=== PATIENT | female | born 1985 | race Caucasian/White ===

== ENCOUNTER 2017-10-11 14:59 | Emergency (ER) | payer OTHER ==
--- NOTE | 2017-10-11 15:50 | EDM.PDOC ---
ED HPI GENERAL MEDICAL PROBLEM - General Chief Complaint: Genitourinary Problem Stated Complaint: REACTION TO CONTRAST Time Seen by Provider: 10/11/17 15:49 Source of Information: Reports: Patient History Limitations: Reports: No Limitations - History of Present Illness INITIAL COMMENTS - FREE TEXT/NARRATIVE: 32-year-old female presents to the ED with complaints of severe bilateral mid back pain. Patient reports that she was in [place] this morning to have MRI of her abdomen carried out with contrast. She states that she developed diarrhea once while she was there and she was forewarned it was likely going to happen again. Surgical she developed to further diarrhea stools and then had nausea and vomiting. She then developed terrific pain in both kidney distributions that is still present and has been present now for almost 6 hours post contrast. She's no longer nauseated and she's had 4 bowel movements since the contrast was given. He has not had an MRI of the abdomen or pelvis before with IV and oral contrast. Was done because she has Crohn's disease and they are looking for an etiology of a fistula or multiple fistulas. She has had no previous abdominal surgery. She's had multiple perianal fistulas. Onset: Today Onset Date: 10/11/17 Onset Time: 10:00 Duration: Hour(s): Location: Reports: Back (Bilateral severe flank pain. This is in the distribution of her kidneys.), Other (Loose diarrhea stools 4.) Quality: Reports: Ache Severity: Severe (Deep aching throbbing pain in the distribution of both kidneys ) Improves with: Reports: None Worsens with: Reports: None Context: Denies: Activity, Exercise, Lifting, Sick Contact, Trauma, Other Associated Symptoms: Reports: Nausea/Vomiting (As above loose watery stools times for nausea and vomiting initially due to the intensity of pain 3.), Other Treatments FACILITIES MAINTENANCE TECHNICIAN: Reports: Other (see below) Other Treatments FACILITIES MAINTENANCE TECHNICIAN: none Bilateral Flank Pain Score (Numeric/FACES): 7 - Related Data Allergies Allergy/AdvReac Type Severity Reaction Status Date / Time lorazepam [From Ativan] Allergy Rash Verified 10/11/17 15:09 Home Meds: Home Meds Ondansetron [Zofran] 4 mg BUCCAL Q6H PRN #5 tab 10/11/17 [Rx] oxyCODONE HCl/Acetaminophen [Percocet 5-325 mg Tablet] 1 - 2 each PO Q4H PRN #6 tablet 10/11/17 [Rx] Past Medical History Gastrointestinal History: Reports: Other (See Below) Other Gastrointestinal History: possible chrohn`s disease with recurrent multiple perianal fistulas. Social & Family History - Tobacco Use Smoking Status *Q: Never Smoker - Caffeine Use Caffeine Use: Reports: Tea - Recreational Drug Use Recreational Drug Use: No - Living Situation & Occupation Living situation: Reports: Occupation: Employed ED ROS GENERAL - Review of Systems Review Of Systems: See Below Constitutional: Reports: Fatigue. Denies: Fever, Chills, Malaise, Weakness HEENT: Reports: No Symptoms Respiratory: Reports: No Symptoms Cardiovascular: Reports: No Symptoms Endocrine: Reports: No Symptoms GI/Abdominal: Reports: Abdominal Pain, Diarrhea, Decreased Appetite, Nausea, Vomiting (Earlier 2 due to the intensity of the back pain.), Other (4 today. Straight multiple perianal fistula development over the years. Suspect Crohn's disease.) : Reports: Flank Pain (Vel[place] of severe bilateral flank pain about an hour and a half to 2 hours after having oral and IV contrast for MRI of the abdomen and pelvis.) Musculoskeletal: Reports: No Symptoms Skin: Reports: Other Neurological: Reports: No Symptoms (Anal fistulas.) Psychiatric: Reports: No Symptoms Hematologic/Lymphatic: Reports: No Symptoms Immunologic: Reports: No Symptoms ED EXAM, GI/ABD - Physical Exam Exam: See Below Exam Limited By: No Limitations General Appearance: Alert, Mild Distress Eyes: Bilateral: Normal Appearance Respiratory/Chest: No Respiratory Distress, Lungs Clear, Normal Breath Sounds Cardiovascular: Normal Peripheral Pulses, Regular Rate, Rhythm, No Edema, No Gallop, No Murmur, No Rub GI/Abdominal Exam: Normal Bowel Sounds, Soft, Non-Tender, No Organomegaly, Pelvis Stable, Tender, Other (Tenderness both upper quadrants of the abdomen. No surgical scars) Back Exam: CVA Tenderness (L), CVA Tenderness (R) Extremities: Normal Inspection, Normal Range of Motion, Non-Tender, No Pedal Edema Neurological: Alert, Oriented, CN II-XII Intact, Normal Cognition Psychiatric: Normal Affect (Bilateral costovertebral angle tenderness.), Normal Mood Skin Exam: Warm, Dry, Intact, Normal Color, No Rash Course - Vital Signs Last Recorded V/S: Last Vital Signs Temp 36.9 C 10/11/17 15:13 Pulse 84 10/11/17 15:13 Resp 20 10/11/17 15:13 BP 105/75 10/11/17 15:13 Pulse Ox 100 10/11/17 15:13 - Orders/Labs/Meds Orders: Active Orders 24 hr Category Date Time Status URINALYSIS W/MICROSCOPIC [UA W/MICROSCOPIC] [URIN] Stat Lab 10/11/17 16:30 Ordered Labs: Laboratory Tests 10/11/17 10/11/17 10/11/17 Range/Units 16:30 16:35 16:35 WBC 10.94 H (3.98-10.04) K/mm3 RBC 5.03 (3.98-5.22) M/mm3 Hgb 14.0 (11.2-15.7) gm/L Hct 42.4 (34.1-44.9) % MCV 84.3 (79.4-94.8) fl MCH 27.8 (25.6-32.2) pg MCHC 33.0 (32.2-35.5) g/dl RDW Std Deviation 41.6 (36.4-46.3) fL Plt Count 300 (182-369) K/mm3 MPV 9.5 (9.4-12.3) fl Neutrophils % (Manual) 72 H (40-60) % Band Neutrophils % 0 (0-10) % Lymphocytes % (Manual) 21 (20-40) % Atypical Lymphs % 4 % Monocytes % (Manual) 3 (2-10) % Eosinophils % (Manual) 1 (0.7-5.8) % Basophils % (Manual) 0 L (0.1-1.2) Platelet Estimate Adequate Plt Morphology Comment Normal RBC Morph Comment Normal Sodium 138 (136-145) mEq/L Potassium 3.7 (3.5-5.1) mEq/L Chloride 105 (98-107) mEq/L Carbon Dioxide 26 (21-32) mEq/L Anion Gap 10.7 (5-15) BUN 18 (7-18) mg/dL Creatinine 1.0 (0.55-1.02) mg/dL Est Cr Clr Drug Dosing 67.43 mL/min Estimated GFR (MDRD) > 60 (>60) mL/min BUN/Creatinine Ratio 18.0 (14-18) Glucose 103 (74-106) mg/dL Calcium 9.4 (8.5-10.1) mg/dL Total Bilirubin 0.4 (0.2-1.0) mg/dL AST 19 (15-37) U/L ALT 21 (14-59) U/L Alkaline Phosphatase 43 L (46-116) U/L Total Protein 7.9 (6.4-8.2) g/dl Albumin 4.4 (3.4-5.0) g/dl Globulin 3.5 gm/dL Albumin/Globulin Ratio 1.3 (1-2) Urine Color Light yellow (Yellow) Urine Appearance Clear (Clear) Urine pH 7.0 (5.0-8.0) Ur Specific [place] 1.015 (1.005-1.030) Urine Protein Negative (Negative) Urine Glucose (UA) Negative (Negative) Urine Ketones Negative (Negative) Urine Occult Blood Negative (Negative) Urine Nitrite Negative (Negative) Urine Bilirubin Negative (Negative) Urine Urobilinogen 0.2 (0.2-1.0) Ur Leukocyte Esterase Trace H (Negative) Urine RBC 0-5 (0-5) /hpf Urine WBC 0-5 (0-5) /hpf Ur Epithelial Cells 5-10 H (0-5) /hpf Urine Bacteria Few (FEW) /hpf Urine Mucus Not seen (FEW) /hpf Meds: Medications Discontinued Medications Generic Name Dose Route Start Last Admin Trade Name Freq PRN Reason Stop Dose Admin Hydromorphone HCl 0.5 mg 10/11/17 16:11 10/11/17 16:45 Dilaudid IVPUSH 10/11/17 16:12 0.5 mg ONETIME ONE Administration Sodium Chloride 1,000 mls @ 999 mls/hr 10/11/17 16:15 10/11/17 16:44 Normal Saline IV 999 mls/hr ASDIRECTED NIKOLAI Administration Ondansetron HCl 4 mg 10/11/17 16:11 10/11/17 16:45 Zofran IVPUSH 10/11/17 16:12 4 mg ONETIME ONE Administration - Radiology Interpretation Free Text/Narrative:: 32-year-old female presents to the ED for evaluation of bilateral severe flank pain that started after having oral and IV contrast for MRI of the abdomen this morning in [place]. She has a history of Crohn disease with multiple perianal fistulas and the MRI was being done to see if they can track down the source of current fistula or fistulae. She reports while she was there she developed acute diarrhea and was warned that it would happen at least once or twice further from the oral contrast. Socially she's had 4 loose diarrhea stool she's had nausea and vomiting 2 of bilious materials. She developed severe bilateral flank pain about 2 hours after the procedure on the way home. This is persisted now for 5 hours. She is able to locally localize the pain to deep aching pain in the distribution of both kidneys. She's never had contrast media before for MRI. Plan possible contrast-induced nephritis but I'm not sure this would hurt. I wonder if there is some holdup due to strictures at the UPJ's bilaterally. Plan I will give her IV normal saline at open see if this aggravates the pain. Will give Dilaudid 0.5 mg and Zofran 4 mg IV for nausea and pain relief. Routine labs particular baseline renal function and a urinalysis will be obtained. - Re-Assessments/Exams Free Text/Narrative Re-Assessment/Exam: 10/11/17 17:07 KUB reveals liver to be slightly enlarged. Does appear to have a Diana's lobe as the right side of the liver is nearly touching her iliac crest. There is scattered gas throughout the large bowel and I believe some stool in the rectal vault. There is no certainly no sign of bowel obstruction. Labs are pending 10/11/17 17:41 White count is mildly elevated at 10.94. Differential pending. Hemoglobin is 14.0 with hematocrit of 42.4. Platelet count is 300,000. Sodium is 138 with a potassium of 3.7. Chloride 105 with a bicarbonate 26. And a gap is 10.7. BUNs 18 with a creatinine of 1.0. Glucose is 103. Calcium is 9.4. Movement is normal at 0.4. Liver function is otherwise normal other than alk phosphatase mildly elevated at 43. Total protein is 7.9 with a globulin of 3.5. Leukocyte esterase is trace. 5-10 epithelial cells only. No protein 10/11/17 18:26 still feeling well with no recurrence of pain. She is completed liter of IV fluid. Plan she'll be discharged to home. I will send her home with 5 Zofran 4 mg tablets that she can use one under the tongue every 4-6 hours necessary for nausea relief. Percocet tabs 5/3/25 one every 4 hours as needed for pain relief 6 tabs through the [employer] machine. Departure - Departure Time of Disposition: 18:27 Disposition: Home, Self-Care 01 Condition: Fair Clinical Impression: Adverse effect due to correct medicinal substance, properly administered Qualifiers: Encounter type: initial encounter Qualified Code(s): T50.905A - Adverse effect of unspecified drugs, medicaments and biological substances, initial encounter - Discharge Information Prescriptions: Ondansetron [Zofran] 4 mg BUCCAL Q6H PRN #5 tab PRN Reason: nausea or vomiting oxyCODONE HCl/Acetaminophen [Percocet 5-325 mg Tablet] 1 - 2 each PO Q4H PRN #6 tablet PRN Reason: pain relief. Referrals: PCP,None [Primary Care Provider] - Forms: ED Department Discharge Additional Instructions: Evaluation in the emergency room today in regards to development of severe bilateral flank pain after receiving oral and IV contrast today for MRI of the abdomen. Stage was done in [place]. Of course she certainly develop significant diarrhea in terms of passing the oral contrast. Appears that the IV contrast caused her kidneys to partially obstruct for a period of time and caused swelling of both kidneys which we call hydronephrosis. Almost like the contrast through in a lot of extra fluid from your bloodstream and major kidney swell and cause tremendous amount of pain which in turn cause nausea and vomiting. Lab work done in the ED shows normal kidney function and no other abnormalities were appreciated. Urinalysis too was normal with no sign of significant proteinuria or damage. You're treated with intravenous fluids and pain medication Dilaudid 0.5 mg IV with Zofran 4 mg IV for nausea relief. This provided good relief of pain and nausea. Completed a liter of IV fluids which should help wash the contrast out of your kidneys. Would suggest however that you have repeat kidney function and a urinalysis done in approximately for 5 days time. May attend any clinic to have this completed. I will send her home with a few tablets of Zofran 4 mg second be taken under your tongue every 4-6 hours needed if any further nausea develops. Also 6 tablets of Percocet 5/325 milligrams strength 1 tablet with a little food in her stomach every 3-4 hours if needed for pain relief. That things will settle down on you'll have no further difficulties. Of course if problems worsen and the pain medicine is not effectual return to the ED. - My Orders Last 24 Hours: My Active Orders 10/11/17 16:30 URINALYSIS W/MICROSCOPIC [UA W/MICROSCOPIC] [URIN] Stat - Assessment/Plan Last 24 Hours: My Active Orders 10/11/17 16:30 URINALYSIS W/MICROSCOPIC [UA W/MICROSCOPIC] [URIN] Stat
[2017-10-11] MEDS ORDERED: HYDROmorphone 0.5 MG/0.5 ML SYRINGE IVPUSH ONE (16:11)
[2017-10-11] MEDS ORDERED: Ondansetron 4 MG/2 ML SDV IVPUSH ONE (16:11)
[2017-10-11] MEDS ORDERED: Sodium Chloride 0.9% 1,000 ML IV SCH (16:15)
--- NOTE | 2017-10-11 16:53 | CR ---
Abdomen: Supine view of the abdomen was obtained. Gas noted within colon which appears within normal limits. No abnormal calcifications or soft tissue abnormality is seen. Bony structures are unremarkable. Impression: 1. Unremarkable supine abdominal x-ray. Diagnostic code #1
== END 2017-10-11 18:43 | disposition home or self-care (01) ==
LOC: JD.ED 14:59 → SUPCPDRO 14:59 → JD.ED 18:43
DX: R11.2 Nausea with vomiting, unspecified (principal); R19.7 Diarrhea, unspecified; T50.8X5A Adverse effect of diagnostic agents, initial encounter; Z88.8 Allergy status to other drugs, medicaments and biological substances
CPT/HCPCS: 36415; 74018; 80053; 81001; 85025; 96361; 96374; 96375; 99284; J1170; J2405; J7040

== ENCOUNTER 2017-10-16 14:06 | Emergency (ER) | payer OTHER ==
--- NOTE | 2017-10-18 09:37 | CR ---
Chest: Frontal view of the chest was obtained. Comparison: No prior chest x-ray. Heart size and mediastinum are normal. Lungs are clear. Bony structures are unremarkable. Impression: 1. Nothing acute is seen on frontal chest x-ray. Diagnostic code #1
== END 2017-10-16 17:00 ==
LOC: JD.ED 14:06
DX: R07.89 Other chest pain (principal); F41.0 Panic disorder [episodic paroxysmal anxiety]; Y99.0 Civilian activity done for income or pay
CPT/HCPCS: 36415; 71045; 71045-26; 80053; 81001; 84484; 85025; 93005; 93010; 99284; 99285-25